=== PATIENT | female | born 1980 | race Caucasian/White ===

== ENCOUNTER 2018-08-10 08:56 | Emergency (ER) | payer OTHER ==
[~2018-08-10] VITALS: Ht 157.5 cm; Wt 56.8 kg
[2018-08-10 09:04] VITALS: Ht 157.5 cm; Wt 56.8 kg
[2018-08-10] MEDS ORDERED: ZOLOFT25 MG PO (09:05)
[2018-08-10] MEDS ORDERED: MAXALT10 MG PO (09:06)
[2018-08-10] MEDS ORDERED: BIRTH CONTROL PILL (09:06)
[2018-08-10] MEDS ORDERED: KEFLEX500 MG PO (09:23)
[2018-08-10 09:28] VITALS: BP 122/74
== END 2018-08-10 09:46 | disposition home or self-care (01) ==
LOC: D.ER 08:56
DX: S61.012A Laceration without foreign body of left thumb without damage to nail, initial encounter (principal); W26.0XXA Contact with knife, initial encounter; Y93.89 Activity, other specified; Y92.019 Unspecified place in single-family (private) house as the place of occurrence of the external cause